=== PATIENT | female | born 1995 | race Caucasian/White ===

== ENCOUNTER → 2021-11-01 | Outpatient (CLI) | payer MEDICAID | END | disposition home or self-care (01) | LOC: LABWHC1 11:54 | PROVIDERS: ATTEND Obstetrics & Gynecology | DX: O20.0 Threatened abortion (principal); Z3A.00 Weeks of gestation of pregnancy not specified | CPT/HCPCS: 36415; 84702; 86850; 86900; 86901 ==

== ENCOUNTER → 2021-11-19 | Outpatient (CLI) | payer MEDICAID ==
--- NOTE | 2021-11-19 11:20 | US ---
EXAMINATION TYPE: Transabdominal DATE OF EXAM: 11/19/2021 9:54 AM COMPARISON: NONE CLINICAL HISTORY: Z36.89 ENCOUNTER FOR OTHER SPECIFIED SCR. Viability and Dating. . EXAM PERFORMED: Transabdominal (TA) EXAM MEASUREMENTS: GESTATIONAL AGE / DATING Physician Established: Not yet established Dates by LMP: 09/22/21 (8 weeks/2 days) EDC: 06/29/22 Dates by First Scan: No previous this is first scan Dates by Current Scan for: 11/19/21 (8 weeks/3 days) EDC: 06/28/22 MATERNAL ANATOMY Uterus: 9.1 x 8.6 x 5.3 cm Right Ovary: 3.8 x 2.2 x 1.9 cm Left Ovary: 2.7 x 2.3 x 2.1 cm Post CDS / Adnexa: WNL Presence of free fluid: No Presence of corpus luteal cyst: Probable corpus luteal cyst seen in right ovary measuring 2.1 x 1.8 x 1.4 cm. Presence of subchorionic bleed: No GESTATION / SURVEY CRL: 18.6 mm (8 weeks/3 days) Yolk Sac (normal less than 6mm): 2.3 mm Heart Rate: 172 bpm Rhythm: Normal IUP: Viable IUP Age Appropriate Anatomy Cord Insertion: Too early to visualize Limbs: Too early to visualize Calvarium: Too early to visualize Date of LMP: 09/22/21 Beta HcG (if available): N/A IMPRESSION: Single viable intrauterine .
== END | disposition home or self-care (01) ==
LOC: RADUSWWP 09:26
PROVIDERS: ATTEND Obstetrics & Gynecology
DX: Z36.89 Encounter for other specified antenatal screening (principal); Z3A.08 8 weeks gestation of pregnancy
CPT/HCPCS: 76801

== ENCOUNTER → 2022-02-04 | Outpatient (CLI) | payer MEDICAID ==
--- NOTE | 2022-02-04 10:23 | US ---
EXAMINATION TYPE: US OB anatomy transabd DATE OF EXAM: 02/04/2022 COMPARISON: US HISTORY: O36.62X0 MATERNAL CARE FOR EXCESS GROWTH, SE Anatomy. Large for dates. G1. TECHNIQUE: Transabdominal (TA) EXAM MEASUREMENTS: GESTATIONAL AGE / DATING Physician Established: (19 weeks/2 days) EDC: 06/29/2022 Dates by LMP: (19 weeks/2 days) EDC: 06/29/2022 Dates by First Scan: (19 weeks/ 3 days) EDC: 06/28/2022 Dates by Current Scan for: (19 weeks/4 days) EDC: 06/27/2022 SURVEY IUP: Single PLACENTA: Fundal-Posterior PREVIA: No previa ARCHANA: 11.9 cm Normal CERVICAL LENGTH (transabdominal: norm > 3.0cm): 3.9 cm BIOMETRY PRESENTATION: Transverse LIE: Transverse lie with head maternal L BPD: 4.59 cm 19 weeks / 6 days HC: 17.15 cm 19 weeks / 5 days AC: 14.76 cm 20 weeks / 0 days FL: 3.06 cm 19 weeks / 3 days ESTIMATED WEIGHT IN GRAMS: 312.39 grams ESTIMATED WEIGHT IN LBS/OZ: 0 lbs. 11 oz. WEIGHT PERCENTAGE BASED ON ESTABLISHED DATE: 74.4 % HC/AC: 1.16 Normal FL/AC: 20.72 HEART RATE: 161 bpm RHYTHM: Normal ANATOMY SEEN (within normal limits): * Cisterna Magna (< 1.1 cm) 0.39 cm * Nuchal Fold (< 0.6 cm) 0.25 cm * Cerebellum (varies with age) 1.85 cm Choroid Plexus (bilateral) Midline Falx Cavus Septi Pellucidi Stomach Situs Nose / Lips Diaphragm Kidneys (bilateral) Bladder Cord Insert Three Vessel Cord Longitudinal Spine Transverse Spine Arms (bilateral) Legs (bilateral) ANATOMY SEEN (does not appear within normal limits): * Lateral Vent (< 1 cm) 0.79 cm. Measurement within normal limits, however: Fluid seen within ventricle appears prominent. Recommend high risk assessment where additional imag ing of the heart structures can also be performed. ANATOMY NOT SEEN: Four Chamber Heart Outflow tracts: LVOT/RVOT 2 techs scanned IMPRESSION: 1. Viable intrauterine ultrasound age 19 weeks 4 days 2. Recommend high risk assessment where additional imaging of the heart structures can be further ev aluated.
== END | disposition home or self-care (01) ==
LOC: RADUSWWP 08:16
PROVIDERS: ATTEND Obstetrics & Gynecology
DX: O36.62X0 Maternal care for excessive fetal growth, second trimester, not applicable or unspecified (principal); Z3A.19 19 weeks gestation of pregnancy
CPT/HCPCS: 76811

== ENCOUNTER → 2022-03-14 | Outpatient (CLI) | payer MEDICAID ==
[2022-03-14 14:25] LABS: Basophils # (A) 0.04 X 10*3/uL (0.00-0.10); Basophils % (A) 0.4 %; Eosinophils # (A) 0.04 X 10*3/uL (0.04-0.35); Eosinophils % (A) 0.4 %; HCT 36.3 % (37.2-46.3); HGB 12.2 g/dL (12.0-15.0); Immature Grans, Automated 0.7 %; Lymphocytes # (A) 1.54 X 10*3/uL (0.90-5.00); Lymphocytes % (A) 15.5 %; MCH 33.2 pg (27.0-32.0); MCHC 33.6 g/dL (32.0-37.0); MCV 98.9 fL (80.0-97.0); Mean Platelet Volume 11.5 fL (9.5-12.2); Monocytes # (A) 0.62 X 10*3/uL (0.20-1.00); Monocytes % (A) 6.2 %; NRBC Per 100 WBC 0 /100 WBCS (0.0-0.0); Neutrophils # (A) 7.62 X 10*3/uL (1.80-7.70); Neutrophils % (A) 76.8 %; Platelet Count 219 X 10*3/uL (140-440); RBC 3.67 X 10*6/uL (4.10-5.20); RDW 12.2 % (11.5-14.5); WBC 9.93 X 10*3/uL (4.50-10.00)
== END | disposition home or self-care (01) ==
LOC: LABWHC1 07:33
PROVIDERS: ATTEND Obstetrics & Gynecology
DX: Z34.02 Encounter for supervision of normal first pregnancy, second trimester (principal)
CPT/HCPCS: 36415; 82950; 85025

== ENCOUNTER → 2022-03-21 | Outpatient (CLI) | payer MEDICAID ==
[2022-03-21 12:33] LABS: Glucose 3 Hour, Gest 47 mg/dL
== END | disposition home or self-care (01) ==
LOC: LABWHC1 07:35
PROVIDERS: ATTEND Obstetrics & Gynecology
DX: O99.810 Abnormal glucose complicating pregnancy (principal); Z3A.00 Weeks of gestation of pregnancy not specified
CPT/HCPCS: 36415; 82951; 82952

== ENCOUNTER 2023-10-20 12:00 | Inpatient (IN) | payer MEDICAID, OTHER ==
[2023-10-22] MEDS ORDERED: CARBOPROST TROMETHAMINE 250 MCG/ML 1 ML AMP IM PRN (06:27)
[2023-10-22] MEDS ORDERED: TERBUTALINE 1 MG/ML VIAL SQ PRN (06:27)
[2023-10-22] MEDS ORDERED: miSOPROStoL 200 MCG TAB PO PRN (06:27)
[2023-10-22] MEDS ORDERED: METHYLERGONOVINE 0.2 MG/ML 1 ML AMP IM PRN (06:27)
[2023-10-22] MEDS ORDERED: TRANEXAMIC 1,000 MG/100ML-NACL 1,000 MG in EMPTY BAG 1 BAG IV PRN (06:27)
[2023-10-22] MEDS ORDERED: OXYTOCIN 10 UNIT/ML 1 ML VIAL IM PRN (06:27)
[2023-10-22] MEDS: LACTATED RINGERS 1,000 ML IV SCH (06:45)
[2023-10-22] MEDS: OXYTOCIN 30 UNITS/500 ML NS 30 UNIT in SALINE 1 500ML.BAG IV SCH (06:50)
[2023-10-22 06:57] LABS: Basophils # (A) 0.1 k/uL (0-0.2); Basophils % (A) 1 %; Eosinophils # (A) 0.1 k/uL (0-0.7); Eosinophils % (A) 1 %; HCT 36.1 % (34.0-46.0); HGB 11.8 gm/dL (11.4-16.0); Lymphocytes # (A) 1.8 k/uL (1.0-4.8); Lymphocytes % (A) 18 %; MCH 29.2 pg (25.0-35.0); MCHC 32.8 g/dL (31.0-37.0); MCV 89.1 fL (80.0-100.0); Mean Platelet Volume 9.3; Monocytes # (A) 0.6 k/uL (0-1.0); Monocytes % (A) 7 %; Neutrophils # (A) 7.1 k/uL (1.3-7.7); Neutrophils % (A) 73 %; Platelet Count 204 k/uL (150-450); RBC 4.06 m/uL (3.80-5.40); RDW 13.9 % (11.5-15.5); WBC 9.7 k/uL (3.8-10.6)
[2023-10-22] MEDS ORDERED: ROPIVACAINE 5 MG/ML 30 ML VIAL ONE (08:58)
[2023-10-22] MEDS ORDERED: SODIUM CHLORIDE 0.9% 250 ML BAG ONE (08:58)
[2023-10-22] MEDS ORDERED: fentaNYL (PF) 50 MCG/ML 5 ML AMP ONE (08:58)
--- NOTE | 2023-10-22 09:00 | P.HPOB ---
History of Present Illness H&P Date: 10/22/23 Chief Complaint: induction of labor, TOLAC Ms. Pérez is a 28 year old at 39weeks and 3 days with EDC of 10/20/2023 by LMP c/w 7 week US who presents for scheduled induction of labor and TOLAC. The has been uncomplicated. Growth US at 31 weeks estimated the fetus to eb in the 66%ile for growth. Obstetric history: scheduled at 39 weeks for suspected macrosomia work-up: blood type A positive, antibody negative, rubella immune, VDRL non-reactive, HBsAg negative, HIV negative, HCV Ab non-reactive, gonorrhea negative, chlamydia negative, GBS negative. Declines TDap and flu vaccines. Past Medical History Past Medical History: No Reported History History of Any Multi-Drug Resistant Organisms: None Reported Additional Past Surgical History / Comment(s): [place] teeth extraction. Past Anesthesia/Blood Transfusion Reactions: No Reported Reaction Past Psychological History: No Psychological Hx Reported Smoking Status: Never smoker Past Alcohol Use History: None Reported Past Drug Use History: None Reported Medications and Allergies Home Medications Medication Instructions Recorded Confirmed Type Vit No.179/Iron/Folic 1 tab PO DAILY 06/24/22 10/22/23 History [ Tablet] Allergies Allergy/AdvReac Type Severity Reaction Status Date / Time sulfamethoxazole AdvReac Rash/Hives Verified 10/22/23 06:26 [From Bactrim] trimethoprim [From Bactrim] AdvReac Rash/Hives Verified 10/22/23 06:26 Exam Vital Signs Temp Pulse Resp BP Pulse Ox 10/22/23 06:25 96.4 F L 101 H 16 113/69 100 Intake and Output 10/21/23 10/22/23 10/22/23 22:59 06:59 14:59 Other: Weight 81.647 kg Focused physical exam is performed. This is a healthy-appearing in no apparent distress. Breathing is non-labored. Abdomen is gravid and non-tender. Cervical exam is 6cm, 80% effacement, -1 station. AROM is undertaken with clear fluid noted. Extremities non-tender and non-edematous. heart tones are Category I and tocometer is graphing contractions every 2-4 minutes. Results Result Diagrams: 10/22/23 06:45 Assessment and Plan Assessment: 28 year old at 39 weeks and 3 days presenting for IOL, TOLAC Plan: Admit, NPO, pitocin per protocol, epidural prn, continuous EFM and tocometer, anticipate vaginal delivery. Risks of TOLAC discussed including 1% risk of uterine rupture, which is an emergency for fetus and mother.
[2023-10-22] MEDS: NALBUPHINE 10 MG/ML (10 ML MDV) IV ONE (10:30)
[2023-10-22] MEDS: LIDOCAINE 0.5% (PF) 5 MG/ML (50 ML SDV) SQ PRN (17:03)
[2023-10-22] MEDS ORDERED: ZOLPIDEM 5 MG TAB PO PRN (18:05)
[2023-10-22] MEDS ORDERED: LANOLIN CREAM 1 GM TUBE TOPICAL PRN (18:05)
[2023-10-22] MEDS ORDERED: HYDROCORTISONE 2.5% RECTAL CREAM 30 GM TUBE RECTAL PRN (18:05)
[2023-10-22] MEDS ORDERED: diphenhydrAMINE 50 MG/ML 1 ML VIAL IVP PRN ×2 (18:05)
[2023-10-22] MEDS ORDERED: diphenhydrAMINE 50 MG CAP PO PRN (18:05)
[2023-10-22] MEDS ORDERED: diphenhydrAMINE 25 MG CAP PO PRN (18:05)
[2023-10-22] MEDS ORDERED: BENZOCAINE/MENTHOL SPRAY 1 GM/SPRAY AEROSOL TOPICAL PRN (18:05)
[2023-10-22] MEDS ORDERED: SIMETHICONE 80 MG CHEWABLE PO PRN (18:05)
--- NOTE | 2023-10-22 18:05 | P.PROBDLV ---
Vaginal Delivery Note - . Vaginal Delivery Note: DATE OF SERVICE: 10/22/2023 PROCEDURE: Normal Vaginal Delivery ATTENDING: Dr. Erin Llanes MD ESTIMATED BLOOD LOSS: 400 mL FINDINGS: VFI, Apgars 9/9. Weight 8 pounds and 6 ounces (3805 grams) PROCEDURE: Ms. Pérez is a 28 year old at 39 weeks and 3 days presenting to labor and delivery for induction of labor and TOLAC. The has been uncomplicated. For further details, please review the admitting H&P. Pitocin was titrated per protocol. Amniotomy was performed at 804 revealing clear amniotic fluid. The patient received epidural anesthesia per her request. The patient was completely dilated at 1130. She pushed for approximately 4 hours, making slow progres. A viable female was delivered at 1656. The infant was placed on the maternal abdomen and bulb suctioned. The infant was noted to be spontaneously crying. Cord was clamped and cut after a 30-second delay. The infant was handed off to the pediatric team. Placenta was delivered whole with gentle cord traction at 1659. Oxytocin was started to facilitate uterine tone. Uterine fundus was found to be firm and below the umbilicus upon fundal massage. Thorough examination of the cervix, vagina, periurethral area, and perineum revealed a large second degree laceration, a sulcal laceration, and a right labia majora laceration. These areas were infiltrated with lidocaine and repaired with 2-0 and 3-0 Vicryl in the usual fahsion. The patient is stable and allowed to begin the bonding process.
[2023-10-22] MEDS: ACETAMINOPHEN TAB 325 MG TAB PO PRN (18:30)
[2023-10-22] MEDS: IBUPROFEN 600 MG TAB PO PRN (20:11)
[2023-10-22] MEDS: SENNOSIDES-DOCUSATE SODIUM 1 EACH TAB PO SCH (20:12)
[2023-10-23 07:50] VITALS: RESP 16
[2023-10-23 08:27] LABS: Basophils % (A) 0 %; Eosinophils % (A) 0 %; HCT 33.3 % (34.0-46.0); HGB 10.4 gm/dL (11.4-16.0); Hypochromasia Slight; Lymphocytes # (A) 1.8 k/uL (1.0-4.8); Lymphocytes % (A) 12 %; MCH 28.6 pg (25.0-35.0); MCHC 31.4 g/dL (31.0-37.0); MCV 91.3 fL (80.0-100.0); Mean Platelet Volume 10.4; Monocytes # (A) 0.9 k/uL (0-1.0); Monocytes % (A) 6 %; Neutrophils # (A) 11.6 k/uL (1.3-7.7); Neutrophils % (A) 81 %; Platelet Count 172 k/uL (150-450); RBC 3.64 m/uL (3.80-5.40); WBC 14.4 k/uL (3.8-10.6)
--- NOTE | 2023-10-23 08:47 | P.DS ---
Providers Date of admission: 10/22/23 06:01 Expected date of discharge: 10/23/23 Attending physician: Erin Llanes MD Primary care physician: Stated None Hospital Course: Ms. Pérez is a 28 year old now PPD#1 s/p . The patient is doing well this morning and had no acute events overnight. She has no complaints this morning. She reports minimal lochia, passing flatus, voiding without difficulty, ambulating, and eating/drinking without nausea or vomiting. doing well at bedside. She denies chest pain, shortness of breathing, fevers, or chills overnight. She denies pain or swelling in the legs. restrictions are reviewed with the patient including pelvic rest for 6 weeks. The patient is encouraged to call the office if she experiences any heavy bleeding, foul- smelling discharge, breast complaints, or any if she has any other concerns. She will follow up in the office with in 6 weeks for exam. She plans to use Motrin and Tylenol OTC prn. All questions are answered. Assessment: 28 year old PPD#1 s/p Patient Condition at Discharge: Good Plan - Discharge Summary New Discharge Prescriptions: No Action Vit No.179/Iron/Folic [ Tablet] 1 tab PO DAILY Discharge Medication List Vit No.179/Iron/Folic [ Tablet] 1 tab PO DAILY 06/24/22 [History] Follow up Appointment(s)/Referral(s): Erin Llanes MD [STAFF PHYSICIAN] - 12/01/23 10:15 am Activity/Diet/Wound Care/Special Instructions: Instructions 1. Do not begin any exercise program for 3 weeks. 2. Do not resume sexual relations for 6 weeks or longer if uncomfortable. 3. You may take tub baths or showers at any time. 4. You may use tampons if desired after 6 weeks. 5. Keep any areas repaired with stitches clean and dry. 6. If you are not nursing, wear a good fitting, supportive bra during the day and limit fluid intake for at least 1 week to prevent breast engorgement. 7. Call the office, , within the next week to make appointment for your 6 week checkup if it has not already been made. 8. Report any of the following occurrences to the doctor promptly: a. Heavy, excessive bleeding b. Chills, fever c. Burning or frequency of urination d. Pain or redness and breasts if nursing e. Increasing pain or swelling of vulva (stitches). In addition to the above instructions, the following additional should be followed: 1. No heavy lifting or straining (exercising) until after 6 week checkup. 2. Keep abdominal incision clean and dry: You may wear a dressing if more comfortable. 3. Make office appointment for 2 weeks after delivery date. Discharge Disposition: HOME SELF-CARE
[2023-10-23 18:29] VITALS: BP 110/65; PULSE 66; TEMP 98
== END 2023-10-23 18:30 | disposition home or self-care (01) | DRG 807 ==
LOC: 4FBP 10-22 06:01
PROVIDERS: ADMIT Obstetrics & Gynecology; ATTEND Obstetrics & Gynecology
PROC: 10907ZC Drainage of Amniotic Fluid, Therapeutic from Products of Conception, Via Natural or Artificial Opening (ICD-10-PCS; principal; 2023-10-22)
PROC: 3E033VJ Introduction of Other Hormone into Peripheral Vein, Percutaneous Approach (ICD-10-PCS; principal; 2023-10-22)
PROC: 0KQM0ZZ Repair Perineum Muscle, Open Approach (ICD-10-PCS; principal; 2023-10-22)
PROC: 10E0XZZ Delivery of Products of Conception, External Approach (ICD-10-PCS; principal; 2023-10-22)
PROC: 0UQMXZZ Repair Vulva, External Approach (ICD-10-PCS; principal; 2023-10-22)
DX: O34.219 Maternal care for unspecified type scar from previous cesarean delivery (principal); O70.1 Second degree perineal laceration during delivery; Z28.310 Unvaccinated for COVID-19; Z88.2 Allergy status to sulfonamides; Z3A.39 39 weeks gestation of pregnancy; Z37.0 Single live birth
CPT/HCPCS: 85025; 86850; 86900; 86901